=== PATIENT | male | born 1965 | race Caucasian/White ===

== ENCOUNTER 2017-02-18 20:49 | Inpatient (IN) | payer OTHER ==
[~2017-02-18] VITALS: Ht 177.8 cm; Wt 85.0 kg
[~2017-02-18 20:49] MED LIST: ASPI81TA28 PO; BUPR8MIS SL; CIPR-255 PO; LISI-461 PO; PRLSR20 PO
[2017-02-18] MEDS ORDERED: MULT-513 PO (21:32)
[2017-02-18] MEDS ORDERED: SODIUM CHLORIDE 0.9% 1000ML 1,000 ML IV STA (22:17)
[2017-02-18 22:58] LABS: URINE APPEARANCE CLOUDY (CLEAR); URINE COLOR ORANGE; URINE EPITHELIAL CELL AUTO >30 /lpf (0-5); URINE NITRITE POS (NEG); URINE PH 5.5 (4.5-7.5); URINE SPECIFIC GRAVITY 1.035 (1.000-1.030); UROBILINOGEN POS (NEG); ZZUR CULT IF INDIC CLEAN CATCH NO
[2017-02-18 23:00] LABS: MANUAL MICROSCOPIC REQUIRED? NO; REVIEW REQ? YES; URINE BILIRUBIN 1+ (NEG)
[2017-02-18 23:12] LABS: URINE MUCUS PRESENT (NONE PRSENT); URINE PATH CASTS 1-5 GRANULAR CASTS /lpf (0)
[2017-02-18 23:14] LABS: ALT/SGPT 83 U/L (12-78); AST/SGOT 131 U/L (15-37); BLOOD UREA NITROGEN 11 mg/dl (7-18); BUN/CREATININE RATIO 12.8 (10-20); CALCIUM 8.9 mg/dl (8.5-10.1); CARBON DIOXIDE 27 mmol/L (21-32); CHLORIDE 93 mmol/L (98-107); CREATININE 0.83 mg/dl (0.60-1.40); GLUCOSE 144 mg/dl (70-99); MAGNESIUM 1.9 mg/dl (1.8-2.4); POTASSIUM 3.3 mmol/L (3.5-5.1); SODIUM 131 mmol/L (136-145)
[2017-02-18 23:29] LABS: ALKALINE PHOSPHATASE 124 U/L (45-117); THYROID STIMULATING HORMONE 0.317 uIu/ml (0.300-4.500)
[2017-02-18 23:47] LABS: LYME DISEASE AB IGG NEG (NEG); LYME DISEASE AB IGM NEG (NEG)
[2017-02-18 23:52] LABS: HEMATOCRIT 40.7 % (42-52); MEAN CELL VOLUME 80.8 fL (80-100); MEAN CORPUSCULAR HEMOGLOBIN 29.6 pg (25-34); MEAN CORPUSCULAR HGB CONC 36.6 g/dl (32-36); MEAN PLATELET VOLUME 10.2 fL (7.4-10.4); PLATELET COUNT 91 K/uL (130-400); RED BLOOD COUNT 5.04 M/uL (4.7-6.1); WHITE BLOOD COUNT 5.04 K/uL (4.8-10.8)
[2017-02-18 23:53] LABS: BASO % 0.4 %; BASO ABS # 0.02 K/uL (0-0.2); COMPLETE YES; IG% 0.4 %; LARGE PLATELETS 1+; LYMPH % 11.9 %; NEUT % 81.3 %; PLT ESTIMATE DECREASED
[2017-02-19] MEDS ORDERED: SODIUM CHLORIDE 0.9% 1000ML 1,000 ML IV STA (00:13)
[2017-02-19] MEDS ORDERED: ONDANSETRON INJ 2 MG/ML 2 ML VIAL IV STA (00:13)
[2017-02-19] MEDS ORDERED: ONDANSETRON INJ 2 MG/ML 2 ML VIAL ONE (00:18)
--- NOTE | 2017-02-19 00:20 | EMERGENCY ROOM VISIT NOTE ---
ED Visit Note First contact with patient: 22:05 51-year-old male with nausea and some generalized abdominal pain was fully evaluated by Kerri Louis PA-C. Please see her note. I also independently evaluated the patient. Patient appears to be in early rhabdomyolysis. He was given large volumes of fluids. The patient was also given oral fluids
[2017-02-19] MEDS ORDERED: CEFTRIAXONE SOD INJ 1 GM ADDVIAL IV STA (01:55)
[2017-02-19] MEDS ORDERED: POTASSIUM CHLORIDE 10 MEQ TABCR PO STA (01:57)
[2017-02-19] MEDS ORDERED: OPTIRAY 320 IV PRN (02:30)
[2017-02-19] MEDS ORDERED: KETOROLAC TROMETHAMINE 30 MG/ML VIAL IV PRN (02:30)
[2017-02-19] MEDS ORDERED: ACETAMINOPHEN 325 MG TAB PO PRN (02:30)
[2017-02-19] MEDS ORDERED: ONDANSETRON INJ 2 MG/ML 2 ML VIAL IV PRN (02:45)
[2017-02-19] MEDS ORDERED: LORAZEPAM 2 MG/ML 1 ML VIAL IV PRN (02:45)
[2017-02-19] MEDS ORDERED: LORAZEPAM INJ 0.5 MG in SYRINGE 0.75 ML IV PRN (03:15)
[2017-02-19 03:25] LABS: BENZODIAZEPINE, URINE NEG (NEG); COCAINE,URINE NEG (NEG); PHENCYCLIDINE, URINE NEG (NEG)
--- NOTE | 2017-02-19 03:42 | HISTORY & PHYSICAL EXAMINATION ---
DATE OF ADMISSION: 02/19/2017 HX obtained from px and records. CHIEF COMPLAINT: Abdominal pain, flank pain, chills. HISTORY OF PRESENT ILLNESS: Mhxedical history significant for hypertension, past tobacco and alcohol abuse, ADD as per records, GERD, chronic pain on Suboxone therapy. Recent confinement last April 2014 for atypical chest pain and alcoholism. A week history of dysuria sx, bilateral flank pain, achy central abdominal pain , nausea, no emesis, no diarrheal. Px also noted chills, posterior headache symptoms. No cough symptoms. Shaking at home. MEDICAL HISTORY: As above. SURGERIES: Shoulder surgery, tonsillectomy, and adenectomy. HOME MEDICATIONS: Include aspirin, Suboxone, Zestril, multivitamins, and Prilosec. ALLERGIES: TO ADHESIVE, BEESTING, DIPHENHYDRAMINE, HYDROCODONE, AND LATEX. FAMILY HISTORY: heart dse. PERSONAL AND SOCIAL HISTORY: Past tobacco and alcohol abuse, disabled. REVIEW OF SYSTEMS: As per HPI, all other ROS negative. PHYSICAL EXAMINATION: VITAL SIGNS: Blood pressure was noted to be 121/82, pulse rate 134 later 84, RR 18, temp 97, sats 96 on room air. GENERAL: Noted to be slightly uncomfortable, no respiratory distress. SKIN: Normal color. HEENT: [place] palpebral conjunctivae. Dry mucosa. NECK: No JVD. Supple. CHEST: Clear to auscultation. HEART: RRR ABDOMEN: Minimal upper abdominal tenderness. No flank tenderness. EXTREMITIES: No edema. no tenderness NEUROLOGIC: No gross focality. LABS: Hemoglobin was noted to be 14, hematocrit 40, white cell count 5, and platelets 91. Sodium 131 potassium 3.4, BUN 11, creatinine 0.8, AST 131, ALT 83, alkaline phosphatase 124. CPK 2926. UA nitrite positive, occult blood positive. Chest x-ray as per my interpretation, atelectasis and borderline heart enlargement. CT head, no acute pathology initial read. ASSESSMENT: 1. Rhabdomyolysis, possibly from illness secondary to UTI no sepsis. 2. abd/flank pain ro kidney stone 3. Hypertension, stable. 4. Past tobacco and alcohol abuse. 5. Thrombocytopenia secondary to illness and meds. 6. chronic pain on Suboxone 7. hypokalemia 2 to illness PLAN: GMF ff urine CS, IV Ceftriaxone for now CT abdomen and pelvis. Further management pending CT abdomen and pelvis results IVF. Follow CPK. Hold aspirin for now RE thrombocytopenia replace K DVT prophylaxis SCDs RE thrombocytopenia Full code. MTDD
[2017-02-19] MEDS: NSS + 20MEQ KCL 1000ML 1,000 ML IV SCH ×3 (03:47→12:48)
[2017-02-19 04:01] VITALS: BP 142/80; PULSE 105; TEMP 36.8; Ht 177.8 cm; Wt 85.0 kg
[2017-02-19 04:34] LABS: INR 1.3 (0.9-1.1); PROTHROMBIN TIME (PATIENT) 13.9 SECONDS (9.0-12.0)
[2017-02-19 04:45] LABS: HEMATOCRIT 36.2 % (42-52); MEAN CELL VOLUME 81.5 fL (80-100); MEAN CORPUSCULAR HEMOGLOBIN 29.3 pg (25-34); MEAN CORPUSCULAR HGB CONC 35.9 g/dl (32-36); RED BLOOD COUNT 4.44 M/uL (4.7-6.1)
[2017-02-19 04:49] LABS: BUN/CREATININE RATIO 10.5 (10-20); CREATININE 0.78 mg/dl (0.60-1.40); POTASSIUM 3.6 mmol/L (3.5-5.1)
[2017-02-19 05:04] LABS: ALB/GLOB RATIO 0.9 (0.9-2)
[2017-02-19 05:18] LABS: MEAN PLATELET VOLUME 9.7 fL (7.4-10.4); PLATELET COUNT 77 K/uL (130-400)
[2017-02-19 05:19] LABS: BASO % 0.4 %; BASO ABS # 0.01 K/uL (0-0.2); COMPLETE YES; LARGE PLATELETS 1+; LYMPH % 18.1 %; LYMPH ABS # 0.49 K/uL (1.2-3.4); MONO % 8.1 %; NEUT % 73.4 %
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
--- NOTE | 2017-02-19 06:44 | DIAGNOSTIC IMAGING REPORT ---
CT OF THE HEAD WITHOUT CONTRAST CLINICAL HISTORY: New onset headaches. COMPARISON STUDY: Head CT September 25, 2011. CT DOSE: 614.27 mGy.cm TECHNIQUE: Helical axial images of the head were obtained without IV contrast. Automated exposure control was utilized for the study. FINDINGS: No acute intracranial hemorrhage, midline shift or mass effect is present. Ventricular system is normal. Basilar cisterns are patent. There are no extra-axial collections. Benedict-white differentiation is maintained. There are no findings to suggest acute dural sinus thrombosis or acute territorial infarct. There are no significant calvarial abnormalities. Mastoid air cells are clear. There is mucosal thickening of the ethmoid sinuses. IMPRESSION: 1. No acute intracranial findings. 2. Mucosal thickening of the ethmoid sinuses. Electronically signed by: Sridhar Machado M.D. 02/19/2017 6:43 AM Dictated Date/Time: 02/19/2017 6:41 AM
--- NOTE | 2017-02-19 07:30 | DIAGNOSTIC IMAGING REPORT ---
SINGLE VIEW CHEST CLINICAL HISTORY: Atypical chest pain. FINDINGS: 2 AP, portable, upright chest radiographs are compared to study dated 04/05/2015 and correlated with chest CT dated 04/17/2014. The examination is degraded by portable technique and patient rotation. The heart is enlarged. The pulmonary vasculature is noncongested.. Emphysema and chronic interstitial thickening are similar to previous. There is bibasilar scarring versus atelectasis. No airspace consolidation or large pleural effusion is identified. No pneumothorax is seen. The bony thorax is grossly intact. IMPRESSION: No active disease in the chest. Electronically signed by: Demarco Mcintosh M.D. 02/19/2017 7:28 AM Dictated Date/Time: 02/19/2017 7:27 AM
[2017-02-19] MEDS: TRAMADOL HCL 50 MG TAB PO PRN (07:37)
[2017-02-19] MEDS: CEROVITE ADV FORMULA TAB PO SCH (07:37)
[2017-02-19] MEDS: BUPRENORPHINE/NALOXONE 8/2 MG TAB SL SCH ×2 (07:37→20:22)
[2017-02-19] MEDS: LISINOPRIL 10 MG TAB PO SCH (07:38)
[2017-02-19] MEDS: PANTOprazole SOD 40 MG TAB PO SCH (07:38)
--- NOTE | 2017-02-19 07:46 | DIAGNOSTIC IMAGING REPORT ---
CT SCAN OF THE ABDOMEN AND PELVIS WITH IV CONTRAST CLINICAL HISTORY: Generalized abdominal pain. COMPARISON STUDY: Abdominal CT dated 06/26/2016. TECHNIQUE: Following the IV administration of 119 cc of Optiray 320, CT scan of the abdomen and pelvis is performed from the lung bases to the proximal femora. Images are reviewed in the axial, sagittal, and coronal planes. IV contrast was administered without complication. Automated dose control exposure was utilized. CT DOSE: 437.73 mGy.cm FINDINGS: Lung bases: The heart is normal in size and without pericardial effusion. There is bibasilar scarring versus atelectasis. No airspace consolidation is seen typical for pneumonia and there is no pleural effusion. Liver: The contrast-enhanced liver is normal in size, contour, and attenuation. There is no intrahepatic biliary ductal dilatation. The hepatic veins and portal veins are patent. Gallbladder: Unremarkable. Spleen: Normal in size and attenuation. Pancreas: Unremarkable. Adrenal glands: Unremarkable. Kidneys: The contrast enhanced kidneys are normal in size and without hydronephrosis. The kidneys enhance symmetrically. Abdominal vasculature: The abdominal aorta is normal in course and caliber noting moderate and age advanced atherosclerotic calcification. Bowel: The small bowel and colon are normal in course and caliber. The appendix is well-visualized and normal. Peritoneum: There is no intraperitoneal free air or abdominal ascites. Lymphadenopathy: None. Pelvic viscera: The bladder, prostate, and seminal vesicles are within normal limits. Skeletal structures: No lytic or blastic lesions are seen. IMPRESSION: There are no acute infectious or inflammatory findings in the abdomen or pelvis. Electronically signed by: Demarco Mcintosh M.D. 02/19/2017 7:45 AM Dictated Date/Time: 02/19/2017 7:42 AM
[2017-02-19 07:54] VITALS: BP 131/72; PULSE 111; TEMP 37.4; O2SAT 94
[2017-02-19 15:39] VITALS: BP 113/75; PULSE 89; TEMP 36.6; O2SAT 96
[2017-02-19] MEDS: LACTATED RINGER'S 1000ML 1,000 ML IV SCH ×2 (16:16→21:05)
--- NOTE | 2017-02-19 22:28 | Progress Note ---
Medicine Progress Note Date & Time of Visit: February 19, 2017 at ~ 15:30 . Subjective Admitted last night with 1 week history of malaise, myalgias, arthralgias. Had some mild dysuria, but only after several days of other symptoms. No cough. No nausea, vomiting, diarrhea. Tick bite about 2 weeks ago with bulls eye rash. . Objective Last 8 Hrs Date Time Temp Pulse Resp B/P Pulse Ox O2 Delivery O2 Flow Rate FiO2 02/19/17 16:00 Room Air 02/19/17 15:39 36.6 89 18 113/75 96 Room Air Physical Exam: General- no acute distress Eyes- anicteric Lungs- clear Heart- RRR Abdomen- + BS, soft, nontender Extremities- no pretibial edema or calf tenderness Neuro- alert Skin- small eschar superior to right iliac crest, no rash suggestive of erythema migrans . Laboratory Results: Last 24 Hours Test 02/18/17 22:42 02/18/17 22:49 02/19/17 04:15 White Blood Count 5.04 K/uL 2.70 K/uL Red Blood Count 5.04 M/uL 4.44 M/uL Hemoglobin 14.9 g/dL 13.0 g/dL Hematocrit 40.7 % 36.2 % Mean Corpuscular Volume 80.8 fL 81.5 fL Mean Corpuscular Hemoglobin 29.6 pg 29.3 pg Mean Corpuscular Hemoglobin Concent 36.6 g/dl 35.9 g/dl Platelet Count 91 K/uL 77 K/uL Mean Platelet Volume 10.2 fL 9.7 fL Neutrophils (%) (Auto) 81.3 % 73.4 % Lymphocytes (%) (Auto) 11.9 % 18.1 % Monocytes (%) (Auto) 6.0 % 8.1 % Eosinophils (%) (Auto) 0.0 % 0.0 % Basophils (%) (Auto) 0.4 % 0.4 % Neutrophils # (Auto) 4.10 K/uL 1.98 K/uL Lymphocytes # (Auto) 0.60 K/uL 0.49 K/uL Monocytes # (Auto) 0.30 K/uL 0.22 K/uL Eosinophils # (Auto) 0.00 K/uL 0.00 K/uL Basophils # (Auto) 0.02 K/uL 0.01 K/uL RDW Standard Deviation 37.1 fL 38.4 fL RDW Coefficient of Variation 12.6 % 12.7 % Immature Granulocyte % (Auto) 0.4 % 0.0 % Immature Granulocyte # (Auto) 0.02 K/uL 0.00 K/uL Platelet Estimate DECREASED Large Platelets 1+ 1+ Erythrocyte Sedimentation Rate 24 mm/hr Urine Color ORANGE Urine Appearance CLOUDY Urine pH 5.5 Urine Specific [place] 1.035 Urine Protein 2+ Urine Glucose (UA) TRACE Urine Ketones 1+ Urine Occult Blood 2+ Urine Nitrite POS Urine Bilirubin 1+ Urine Urobilinogen POS Urine Leukocyte Esterase TRACE Urine WBC (Auto) 1-5 /hpf Urine RBC (Auto) 0-4 /hpf Urine Hyaline Casts (Auto) 1-5 /lpf Urine Epithelial Cells (Auto) >30 /lpf Urine Bacteria (Auto) NEG Urine Pathogenic Casts 1-5 GRANULAR CASTS /lpf Urine Mucus PRESENT Sodium Level 131 mmol/L 134 mmol/L Potassium Level 3.3 mmol/L 3.6 mmol/L Chloride Level 93 mmol/L 98 mmol/L Carbon Dioxide Level 27 mmol/L 27 mmol/L Anion Gap 11.0 mmol/L 9.0 mmol/L Blood Urea Nitrogen 11 mg/dl 8 mg/dl Creatinine 0.83 mg/dl 0.78 mg/dl Est Creatinine Clear Calc Drug Dose 113.0 ml/min 120.2 ml/min Estimated GFR () 119.7 122.8 Estimated GFR (Non- 103.3 106.0 BUN/Creatinine Ratio 12.8 10.5 Random Glucose 144 mg/dl 143 mg/dl Calcium Level 8.9 mg/dl 8.0 mg/dl Magnesium Level 1.9 mg/dl Total Bilirubin 2.5 mg/dl 1.7 mg/dl Aspartate Amino Transf (AST/SGOT) 131 U/L 111 U/L Alanine Aminotransferase (ALT/SGPT) 83 U/L 72 U/L Alkaline Phosphatase 124 U/L 113 U/L Total Creatine Kinase 2926 U/L 2514 U/L Troponin I < 0.015 ng/ml C-Reactive Protein 14.90 mg/dl Total Protein 8.0 gm/dl 6.8 gm/dl Albumin 4.0 gm/dl 3.2 gm/dl Globulin 4.0 gm/dl 3.6 gm/dl Albumin/Globulin Ratio 1.0 0.9 Thyroid Stimulating Hormone (TSH) 0.317 uIu/ml Urine Opiates Screen NEG Urine Methadone, Qualitative NEG Urine Barbiturates NEG Urine Phencyclidine (PCP) Level NEG Ur Amphetamine/Methamphetamine NEG MDMA (Ecstasy) Screen NEG Urine Benzodiazepines Screen NEG Urine Cocaine Metabolite NEG Urine Marijuana (THC) NEG Lyme Disease IgG Antibody NEG Lyme Disease IgM Antibody NEG Influenza Type A Antigen Neg for Influ A Influenza Type B Antigen Neg for Influ B Prothrombin Time 13.9 SECONDS Prothromb Time International Ratio 1.3 Ethyl Alcohol mg/dL < 3.0 mg/dl Date/Time Source Procedure Growth Status 02/18/17 22:42 Urine , Clean Catch Urine Culture Pending Received Assessment & Plan MYALGIAS / ARTHRALGIAS Tick bite about 1 week prior to onset of symptom with apparent erythema migrans per patient (not apparent at this time). Lyme screen negative (but it is early after onset of illness). Consider Lyme disease or other tick-borne illnesses. Consider viral syndrome. Consult ID. RHABDOMYOLYSIS Moderate rhabdomyolysis. Has myalgias from suspected viral illness. IV fluids. Follow. HYPOKALEMIA Replace. Follow. HYPERTENSION Continue lisinopril. CHRONIC PAIN SYNDROME Continue usual dose of buprenorphine / naloxone. VTE PROPHYLAXIS SCD's. Ambulate. DISPOSITION Expected discharge to home. Internal Medicine follow-up with Dr. Collier. . Current Inpatient Medications: Current Inpatient Medications Medications (Trade) Dose Ordered Sig/Elena Route Start Time Stop Time Status Last Admin Dose Admin Ioversol (Optiray 320) 100 ml UD PRN IV 02/19/17 02:30 02/23/17 02:29 Acetaminophen (Tylenol Tab) 325 mg Q6H PRN PO 02/19/17 02:30 03/21/17 02:29 02/19/17 07:37 325 MG Lisinopril (Zestril Tab) 10 mg DAILY PO 02/19/17 08:00 03/21/17 08:59 02/19/17 07:38 10 MG Multivitamins/ Minerals (Multivitamin W/ Minerals Tab) 1 tab DAILY PO 02/19/17 08:00 03/21/17 08:59 02/19/17 07:37 1 TAB Buprenorphine/ Naloxone (Suboxone Tab) 1 ea BID SL 02/19/17 08:00 03/21/17 08:59 02/19/17 20:22 1 EA Pantoprazole Sodium (Protonix Tab) 40 mg QAM PO 02/19/17 08:00 03/21/17 07:59 02/19/17 07:38 40 MG Tramadol HCl (Ultram Tab) 25 mg Q6H PRN PO 02/19/17 02:30 03/21/17 02:29 02/19/17 07:37 25 MG Ketorolac Tromethamine 30 mg 30 mg Q6H PRN IV 02/19/17 02:30 02/24/17 02:29 02/19/17 10:17 30 MG Ceftriaxone Sodium/Dextrose (Rocephin Inj/ Dextrose Add-[place] 50ML) 50 ml @ 100 mls/hr Q24H IV 02/20/17 03:00 02/28/17 03:29 Ondansetron HCl (Zofran Inj) 4 mg Q6H PRN IV 02/19/17 02:45 03/21/17 02:44 Lorazepam 0.5 mg 0.5 mg Q4H PRN IV 02/19/17 02:45 03/21/17 02:44 Lorazepam 0.5 mg/ Syringe 1 ml @ 1 mls/min Q4H PRN IV 02/19/17 03:15 03/21/17 03:14 02/19/17 06:13 1 MLS/MIN Lactated Ringer's (Lr 1000ml) 1,000 ml @ 200 mls/hr Q5H IV 02/19/17 15:45 03/21/17 15:44 02/19/17 21:05 200 MLS/HR
[2017-02-19 23:59] VITALS: BP 143/82; PULSE 91; TEMP 36.8; O2SAT 98
[2017-02-20] VITALS: O2SAT 96
[2017-02-20] MEDS ORDERED: LORAZEPAM 0.5 MG TAB PO STA (00:18)
[2017-02-20] MEDS: LACTATED RINGER'S 1000ML 1,000 ML IV SCH ×5 (01:56→22:07)
[2017-02-20] MEDS: CEFTRIAXONE SOD INJ 1 GM in DEXTROSE 5% ADD-VANTAGE 50ML 50 ML IV SCH (03:29)
[2017-02-20 06:45] LABS: HEMATOCRIT 32.9 % (42-52); MEAN CELL VOLUME 82.3 fL (80-100); MEAN CORPUSCULAR HEMOGLOBIN 28.8 pg (25-34); WHITE BLOOD COUNT 3.51 K/uL (4.8-10.8)
[2017-02-20 06:57] LABS: BUN/CREATININE RATIO 8.6 (10-20); CREATININE 0.74 mg/dl (0.60-1.40); POTASSIUM 3.5 mmol/L (3.5-5.1)
[2017-02-20 07:07] LABS: BASO % 2.3 %; BASO ABS # 0.08 K/uL (0-0.2); COMPLETE YES; EOS % 0.3 %; IG% 1.1 %; LYMPH % 44.4 %; LYMPH ABS # 1.56 K/uL (1.2-3.4); MEAN PLATELET VOLUME 10.4 fL (7.4-10.4); MONO % 11.7 %; NEUT % 40.2 %; PLATELET COUNT 71 K/uL (130-400)
[2017-02-20 07:19] VITALS: BP 122/75; PULSE 98; TEMP 37.7; O2SAT 94
[2017-02-20] MEDS: CEROVITE ADV FORMULA TAB PO SCH (08:20)
[2017-02-20] MEDS: PANTOprazole SOD 40 MG TAB PO SCH (08:21)
[2017-02-20] MEDS: LISINOPRIL 10 MG TAB PO SCH (08:21)
[2017-02-20] MEDS: TRAMADOL HCL 50 MG TAB PO PRN (08:22)
[2017-02-20] MEDS: BUPRENORPHINE/NALOXONE 8/2 MG TAB SL SCH ×2 (08:23→19:37)
--- NOTE | 2017-02-20 08:32 | Progress Note ---
Progress Note Date of Service February 20, 2017. Progress Note Id consult dictated #[id number] A/P: 1. tick borne illness -Add doxy, ? 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
--- NOTE | 2017-02-20 09:20 | INFECT. DISEASE CONSULTATION ---
DATE OF CONSULTATION: 02/20/2017 DATE OF CONSULTATION: 02/20/2017. REQUESTING PHYSICIAN: Dr. Preciado. HISTORY OF PRESENT ILLNESS: This is a 51-year-old gentleman who was admitted secondary to flank pain, chills and abdominal pain. He reports having a tick bite on his right flank about 2 weeks ago. He states that he did remove this. He is unclear how long it had been attached. He does spend a significant amount of time outdoors hunting. He states that he had significant bull's eye rash associated with this. He did not seek treatment at that time. Within a few days prior to admission, he did note myalgias, arthralgias and headache. He then was admitted to the hospital. A CAT scan of the abdomen and pelvis was performed which did not show any abnormalities. He initially had a white blood cell count of 5.0. This is decreased to 3.5. He has also had elevations of his LFTs on the 4th. His AST was elevated at 131, ALT was 83. He has not had any micro performed. He did have a Lyme titer which was negative. He was started empirically on Rocephin. He is tolerating this well. On my examination this morning, he is awake and eating breakfast. He states he does have a headache. He did have a temperature of 37.7 this morning. He was unaware of that but had previously been afebrile. He denies any fevers or chills at home. He believes that his temperature elevation may be responsible for his headache. He continues to have diffuse arthralgias and fatigue. He denies any chest pain, shortness of breath, cough, nausea, vomiting, diarrhea or abdominal pain currently. He has no urinary symptoms. All remaining review of systems are reviewed and are negative. PAST MEDICAL HISTORY: Significant for hypertension, history of alcohol abuse, GERD and chronic pain requiring Suboxone therapy. PAST SURGICAL HISTORY: Includes his shoulder surgery, tonsillectomy and adenoid removal. ALLERGIES: INCLUDE BENADRYL AND LATEX. FAMILY HISTORY: Noncontributory. SOCIAL HISTORY: Significant for a history of tobacco use, history of alcohol abuse. He denies any other drug use. MEDICATIONS: Include Rocephin, Vistaril, multivitamins, Suboxone, Protonix, Ativan, Zofran, Tylenol, Ultram and Toradol. PHYSICAL EXAMINATION: VITAL SIGNS: T-max for the hospital stay is current temperature of 37.7, pulse 98, respiratory rate is 22, blood pressure is 122/75, oxygen saturation is 94-96% on room air. GENERAL: He is awake, alert and oriented x3. He is in no acute distress. HEAD, EYES, EARS, NOSE, AND THROAT: Mucous membranes are moist. There is no nuchal rigidity. HEART: Regular. LUNGS: Clear bilaterally. ABDOMEN: Soft, nontender, nondistended. EXTREMITIES: There is no lower extremity edema bilaterally. There is no rash. Flank was examined at the area of tick bite and I did not see a rash at this time. LABORATORY STUDIES: CBC today reveals a white blood cell count of 3.5, hemoglobin 11.5, platelets 71. Sed rate on the 4th was 24. Chemistry panel today reveals a sodium of 133, potassium 3.5, chloride 99, bicarbonate 26, BUN 6, creatinine 0.7, glucose is 96. LFTs on admission, again AST was 131, ALT was 83. LFTs done yesterday. AST is improved to 111, ALT is improved to 72. CK has been elevated, it was 2926 on admission, it is down to 1266 today. Her CRP was elevated at 14.9 on admission. UDS was negative. Alcohol level was negative. A urinalysis had only 1-5 WBCs. Again, Lyme titer was negative. Flu swab was negative. Urine culture from the 4th is pending. A head CT done in the ER, had no acute findings. Chest x-ray done in the Emergency Room had no active disease in the chest. CT of the abdomen and pelvis done yesterday shows no acute infectious findings in the abdomen. ASSESSMENT AND PLAN: Likely tick-borne disease, Lyme disease versus ehrlichiosis with his evolving pancytopenia as well as his transaminitis I would be suspicious for Marline and/or Anaplasma. Doxycycline will be added. Marline and Anaplasma antibodies will be ordered as well. If he continues to have fevers, blood cultures should be obtained. Thank you for this consultation.
[2017-02-20 14:58] VITALS: BP 125/84; PULSE 90; TEMP 37.1; O2SAT 94
--- NOTE | 2017-02-20 19:05 | Progress Note ---
Medicine Progress Note Date & Time of Visit: February 20, 2017 at 11:40 . Subjective Intermittent low grade fever and sweats. Headache and diffuse myalgias. No cough or SOB. No chest pain. No nausea or vomiting. . Objective Last 8 Hrs Date Time Temp Pulse Resp B/P Pulse Ox O2 Delivery O2 Flow Rate FiO2 02/20/17 15:14 Room Air 02/20/17 14:58 37.1 90 18 125/84 94 Room Air Physical Exam: General- no acute distress Eyes- anicteric Neck- supple Lungs- clear Heart- RRR Abdomen- + BS, soft, nontender Extremities- no pretibial edema or calf tenderness Neuro- alert Skin- diaphoretic . Laboratory Results: Last 24 Hours Test 02/20/17 05:52 02/20/17 09:11 White Blood Count 3.51 K/uL Red Blood Count 4.00 M/uL Hemoglobin 11.5 g/dL Hematocrit 32.9 % Mean Corpuscular Volume 82.3 fL Mean Corpuscular Hemoglobin 28.8 pg Mean Corpuscular Hemoglobin Concent 35.0 g/dl Platelet Count 71 K/uL Mean Platelet Volume 10.4 fL Neutrophils (%) (Auto) 40.2 % Lymphocytes (%) (Auto) 44.4 % Monocytes (%) (Auto) 11.7 % Eosinophils (%) (Auto) 0.3 % Basophils (%) (Auto) 2.3 % Neutrophils # (Auto) 1.41 K/uL Lymphocytes # (Auto) 1.56 K/uL Monocytes # (Auto) 0.41 K/uL Eosinophils # (Auto) 0.01 K/uL Basophils # (Auto) 0.08 K/uL RDW Standard Deviation 39.6 fL RDW Coefficient of Variation 13.0 % Immature Granulocyte % (Auto) 1.1 % Immature Granulocyte # (Auto) 0.04 K/uL Nucleated RBC Absolute Count (auto) 0.04 K/uL Nucleated Red Blood Cells % 1.2 % Sodium Level 133 mmol/L Potassium Level 3.5 mmol/L Chloride Level 99 mmol/L Carbon Dioxide Level 26 mmol/L Anion Gap 8.0 mmol/L Blood Urea Nitrogen 6 mg/dl Creatinine 0.74 mg/dl Est Creatinine Clear Calc Drug Dose 124.7 ml/min Estimated GFR () 125.5 Estimated GFR (Non- 108.3 BUN/Creatinine Ratio 8.6 Random Glucose 96 mg/dl Calcium Level 8.0 mg/dl Total Creatine Kinase 1266 U/L Assessment & Plan MYALGIAS / ARTHRALGIAS Tick bite about 1 week prior to onset of symptom with apparent erythema migrans per patient (not apparent at this time). Lyme screen negative (but it is early after onset of illness). Consider Lyme disease or other tick-borne illnesses. Consider viral syndrome. ID consulted. Continue IV ceftriaxone. Doxycycline added. RHABDOMYOLYSIS Moderate rhabdomyolysis. Has myalgias from suspected viral illness. Receiving IV fluids. CPK 2926 --> --> 1266. Follow. HYPOKALEMIA K 3.3 at time of admission. Replace. Follow. PANCYTOPENIA Probably due to infection. Follow. HYPERTENSION Continue lisinopril. CHRONIC PAIN SYNDROME Continue usual dose of buprenorphine / naloxone. VTE PROPHYLAXIS No anticoagulants due to thrombocytopenia. SCD's. Ambulate. DISPOSITION Expected discharge to home. Internal Medicine follow-up with Dr. Collier. Noelle visiting and given update. . Current Inpatient Medications: Current Inpatient Medications Medications (Trade) Dose Ordered Sig/Elena Route Start Time Stop Time Status Last Admin Dose Admin Ioversol (Optiray 320) 100 ml UD PRN IV 02/19/17 02:30 02/23/17 02:29 Acetaminophen (Tylenol Tab) 325 mg Q6H PRN PO 02/19/17 02:30 03/21/17 02:29 02/19/17 07:37 325 MG Lisinopril (Zestril Tab) 10 mg DAILY PO 02/19/17 08:00 03/21/17 08:59 02/20/17 08:21 10 MG Multivitamins/ Minerals (Multivitamin W/ Minerals Tab) 1 tab DAILY PO 02/19/17 08:00 03/21/17 08:59 02/20/17 08:20 1 TAB Buprenorphine/ Naloxone (Suboxone Tab) 1 ea BID SL 02/19/17 08:00 03/21/17 08:59 02/20/17 08:23 1 EA Pantoprazole Sodium (Protonix Tab) 40 mg QAM PO 02/19/17 08:00 03/21/17 07:59 02/20/17 08:21 40 MG Tramadol HCl (Ultram Tab) 25 mg Q6H PRN PO 02/19/17 02:30 03/21/17 02:29 02/20/17 08:22 25 MG Ketorolac Tromethamine 30 mg 30 mg Q6H PRN IV 02/19/17 02:30 02/24/17 02:29 02/19/17 10:17 30 MG Ceftriaxone Sodium/Dextrose (Rocephin Inj/ Dextrose Add-[place] 50ML) 50 ml @ 100 mls/hr Q24H IV 02/20/17 03:00 02/28/17 03:29 02/20/17 03:29 100 MLS/HR Ondansetron HCl (Zofran Inj) 4 mg Q6H PRN IV 02/19/17 02:45 03/21/17 02:44 Lorazepam 0.5 mg 0.5 mg Q4H PRN IV 02/19/17 02:45 03/21/17 02:44 Lorazepam 0.5 mg/ Syringe 1 ml @ 1 mls/min Q4H PRN IV 02/19/17 03:15 03/21/17 03:14 02/19/17 06:13 1 MLS/MIN Lactated Ringer's (Lr 1000ml) 1,000 ml @ 200 mls/hr Q5H IV 02/19/17 15:45 03/21/17 15:44 02/20/17 17:08 200 MLS/HR Doxycycline Hyclate (Vibramycin Cap) 100 mg BID PO 02/20/17 20:00 03/02/17 19:59
[2017-02-20] MEDS: DOXYCYCLINE HYCLATE 100 MG CAP PO SCH (19:37)
[2017-02-20 20:00] VITALS: O2SAT 96
[2017-02-20 22:56] VITALS: BP 122/83; PULSE 89; TEMP 36.9; O2SAT 94
[2017-02-21] VITALS: O2SAT 96
[2017-02-21] MEDS: CEFTRIAXONE SOD INJ 1 GM in DEXTROSE 5% ADD-VANTAGE 50ML 50 ML IV SCH (02:48)
[2017-02-21] MEDS: LACTATED RINGER'S 1000ML 1,000 ML IV SCH ×2 (03:47→08:32)
[2017-02-21 05:37] LABS: HEMATOCRIT 35.2 % (42-52); MEAN CELL VOLUME 82.4 fL (80-100); MEAN CORPUSCULAR HGB CONC 35.2 g/dl (32-36); RED BLOOD COUNT 4.27 M/uL (4.7-6.1); WHITE BLOOD COUNT 5.07 K/uL (4.8-10.8)
[2017-02-21 05:41] LABS: MEAN PLATELET VOLUME 10.3 fL (7.4-10.4); PLATELET COUNT 82 K/uL (130-400)
[2017-02-21 06:10] LABS: BASO ABS # 0.05 K/uL (0-0.2); BASOPHIL % 0.9 % (0-2); COMPLETE YES; EOSINOPHIL % 2.6 %; GIANT PLATELETS 1+; HYPOSEGMENTED POLYS 1+; LYMPH ABS # 1.54 K/uL (1.2-3.4); LYMPHOCYTE % 30.4 %; NEUTROPHILS % 48.8 %; VARIANT LYM ABS # 0.66 K/uL
[2017-02-21 06:19] LABS: BUN/CREATININE RATIO 8.9 (10-20); CALCIUM 8.6 mg/dl (8.5-10.1); CREATININE 0.6 mg/dl (0.60-1.40); POTASSIUM 3.4 mmol/L (3.5-5.1)
[2017-02-21 07:17] VITALS: BP 142/96; PULSE 80; TEMP 36.5; O2SAT 97
[2017-02-21] MEDS ORDERED: NURSING VERBAL MED ORDER ONE (08:45)
--- NOTE | 2017-02-21 09:00 | Progress Note ---
Medicine Progress Note Date & Time of Visit: February 21, 2017 at 08:10 . Subjective No fever last night. Still experiencing intermittent sweats. Headache improved. Myalgias and arthralgias improved. No chest pain, cough, SOB. No nausea, vomiting, diarrhea. . Objective Last 8 Hrs Date Time Temp Pulse Resp B/P Pulse Ox O2 Delivery O2 Flow Rate FiO2 02/21/17 07:17 36.5 80 18 142/96 97 Room Air Physical Exam: General- no distress Eyes- anicteric Neck- supple Lungs- clear Heart- RRR Abdomen- + BS, soft, nontender Extremities- no pretibial edema or calf tenderness Neuro- alert Skin- mildly diaphoretic; small eschar above right iliac crest with mild surrounding hyperpigmentation but not overtly erythematous . Laboratory Results: Last 24 Hours Test 02/20/17 09:11 02/21/17 05:20 White Blood Count 5.07 K/uL Red Blood Count 4.27 M/uL Hemoglobin 12.4 g/dL Hematocrit 35.2 % Mean Corpuscular Volume 82.4 fL Mean Corpuscular Hemoglobin 29.0 pg Mean Corpuscular Hemoglobin Concent 35.2 g/dl Platelet Count 82 K/uL Mean Platelet Volume 10.3 fL RDW Standard Deviation 39.3 fL RDW Coefficient of Variation 13.1 % Neutrophils % (Manual) 48.8 % Lymphocytes % (Manual) 30.4 % Variant Lymphocytes % (manual) 13.0 % Monocytes % (Manual) 4.3 % Eosinophils % (Manual) 2.6 % Basophils % (Manual) 0.9 % Neutrophils # (Manual) 2.47 K/uL Total Absolute Neutrophils 2.47 K/uL Lymphocytes # (Manual) 1.54 K/uL Absolute Variant Lymphocytes 0.66 K/uL Total Absolute Lymphocytes 2.20 K/uL Monocytes # (Manual) 0.22 K/uL Eosinophils # (Manual) 0.13 K/uL Basophils # (Manual) 0.05 K/uL Hyposegmented Neutrophils 1+ Giant Platelets 1+ Sodium Level 141 mmol/L Potassium Level 3.4 mmol/L Chloride Level 104 mmol/L Carbon Dioxide Level 31 mmol/L Anion Gap 6.0 mmol/L Blood Urea Nitrogen 5 mg/dl Creatinine 0.60 mg/dl Est Creatinine Clear Calc Drug Dose 153.8 ml/min Estimated GFR () 136.8 Estimated GFR (Non- 118.1 BUN/Creatinine Ratio 8.9 Random Glucose 108 mg/dl Calcium Level 8.6 mg/dl Total Creatine Kinase 636 U/L Assessment & Plan FEVER / MYALGIAS / ARTHRALGIAS Tick bite about 1 week prior to onset of symptom. Patient couldn't see site well, but thought that he had an erythematous rash with central clearing. Mary[place]aisale reports that rash was erythematous, a few cm in diameter, without central clearing. Suspected Lyme disease or other tick-borne illnesses such as ehrlichiosis and anaplasmosis. Lyme screen negative (but it is early after onset of illness). ID consulted. Ehrlichia and anaplasma studies pending. Receiving IV ceftriaxone + doxy. RHABDOMYOLYSIS Moderate rhabdomyolysis. Has myalgias from suspected viral illness. Received IV fluids. CPK 2926 --> --> 636. Follow. HYPOKALEMIA K 3.3 at time of admission. Replace. Follow. PANCYTOPENIA WBC anisa 2700, now 5070. Hgb anisa 11.5, now 12.4. Plt anisa 71,000, now 82,000. Pancytopenia probably due to infection. Follow. HYPERTENSION Continue lisinopril. CHRONIC PAIN SYNDROME Continue usual dose of buprenorphine / naloxone. VTE PROPHYLAXIS No anticoagulants due to thrombocytopenia. SCD's. Ambulate. DISPOSITION Expected discharge to home. Internal Medicine follow-up with Dr. Collier. . Current Inpatient Medications: Current Inpatient Medications Medications (Trade) Dose Ordered Sig/Elena Route Start Time Stop Time Status Last Admin Dose Admin Ioversol (Optiray 320) 100 ml UD PRN IV 02/19/17 02:30 02/23/17 02:29 Acetaminophen (Tylenol Tab) 325 mg Q6H PRN PO 02/19/17 02:30 03/21/17 02:29 02/19/17 07:37 325 MG Lisinopril (Zestril Tab) 10 mg DAILY PO 02/19/17 08:00 03/21/17 08:59 02/20/17 08:21 10 MG Multivitamins/ Minerals (Multivitamin W/ Minerals Tab) 1 tab DAILY PO 02/19/17 08:00 03/21/17 08:59 02/20/17 08:20 1 TAB Buprenorphine/ Naloxone (Suboxone Tab) 1 ea BID SL 02/19/17 08:00 03/21/17 08:59 02/20/17 19:37 1 EA Pantoprazole Sodium (Protonix Tab) 40 mg QAM PO 02/19/17 08:00 03/21/17 07:59 02/20/17 08:21 40 MG Tramadol HCl (Ultram Tab) 25 mg Q6H PRN PO 02/19/17 02:30 03/21/17 02:29 02/20/17 08:22 25 MG Ketorolac Tromethamine 30 mg 30 mg Q6H PRN IV 02/19/17 02:30 02/24/17 02:29 02/19/17 10:17 30 MG Ceftriaxone Sodium/Dextrose (Rocephin Inj/ Dextrose Add-[place] 50ML) 50 ml @ 100 mls/hr Q24H IV 02/20/17 03:00 02/28/17 03:29 02/21/17 02:48 100 MLS/HR Ondansetron HCl (Zofran Inj) 4 mg Q6H PRN IV 02/19/17 02:45 03/21/17 02:44 Lorazepam 0.5 mg 0.5 mg Q4H PRN IV 02/19/17 02:45 03/21/17 02:44 Lorazepam/Syringe (Ativan Inj/ Syringe) 1 ml @ 1 mls/min Q4H PRN IV 02/19/17 03:15 03/21/17 03:14 02/19/17 06:13 1 MLS/MIN Doxycycline Hyclate (Vibramycin Cap) 100 mg BID PO 02/20/17 20:00 03/02/17 19:59 02/20/17 19:37 100 MG
[2017-02-21] MEDS: BUPRENORPHINE/NALOXONE 8/2 MG TAB SL SCH ×2 (09:04→20:26)
[2017-02-21] MEDS: DOXYCYCLINE HYCLATE 100 MG CAP PO SCH ×2 (09:04→20:26)
[2017-02-21] MEDS: LISINOPRIL 10 MG TAB PO SCH (09:05)
[2017-02-21] MEDS: CEROVITE ADV FORMULA TAB PO SCH (09:05)
[2017-02-21] MEDS: PANTOprazole SOD 40 MG TAB PO SCH (09:05)
[2017-02-21 14:41] VITALS: BP 119/76; PULSE 85; TEMP 36.4; O2SAT 98
[2017-02-21 23:04] VITALS: BP 135/87; PULSE 79; TEMP 36.4; O2SAT 98
[2017-02-22] MEDS: CEFTRIAXONE SOD INJ 1 GM in DEXTROSE 5% ADD-VANTAGE 50ML 50 ML IV SCH (03:10)
[2017-02-22 07:49] VITALS: BP 146/91; PULSE 76; TEMP 36.4; O2SAT 98
[2017-02-22] MEDS: PANTOprazole SOD 40 MG TAB PO SCH (08:48)
[2017-02-22] MEDS: CEROVITE ADV FORMULA TAB PO SCH (08:49)
[2017-02-22] MEDS: LISINOPRIL 10 MG TAB PO SCH (08:49)
[2017-02-22] MEDS: DOXYCYCLINE HYCLATE 100 MG CAP PO SCH (08:49)
[2017-02-22] MEDS: BUPRENORPHINE/NALOXONE 8/2 MG TAB SL SCH (09:06)
--- NOTE | 2017-02-22 10:02 | Progress Note ---
Subjective Date of Service: February 22, 2017. Subjective Pt evaluation today including: conversation w/ patient, physical exam, chart review, lab review pt states he is feeling significantly better today. denies any myalgias/ arthralgias, no f/c. eating. denies sanders. overall, much better. asking to go home. remaining ros reviewed and are negative. afebrile, tolerating abx. all labs improving. Objective Vital Signs Date Time Temp Pulse Resp B/P Pulse Ox O2 Delivery O2 Flow Rate FiO2 02/22/17 07:49 36.4 76 18 146/91 98 Room Air 02/22/17 00:00 Room Air 02/21/17 23:04 36.4 79 18 135/87 98 Room Air 02/21/17 20:00 Room Air 02/21/17 15:22 Room Air 02/21/17 14:41 36.4 85 20 119/76 98 Room Air Physical Exam General Appearance: WD/WN, no apparent distress Eyes: normal inspection, EOMI Neck: supple Respiratory/Chest: lungs clear, normal breath sounds, no respiratory distress Cardiovascular: regular rate, rhythm, no edema Abdomen: non tender, soft Extremities: non-tender, normal inspection, no pedal edema Neurologic/Psychiatric: alert, oriented x 3 Skin: normal color Assessment and Plan (1) Tick-borne disease Assessment & Plan: will stop ctx and continue with po doxy, 14 days total ? early lyme vs anaplasma, labs support anaplasma ok for d/c from ID standpoint
[2017-02-22 13:08] VITALS: BP 146/91; PULSE 76; TEMP 36.4; O2SAT 98
--- NOTE | 2017-02-22 13:50 | Progress Note ---
Medicine Progress Note Date & Time of Visit: February 22, 2017 at 13:50 . Subjective Afebrile. Sweats improved. Headache resolved. Myalgias improved. No cough or SOB. No nausea, vomiting, diarrhea. . Objective Last 8 Hrs Date Time Temp Pulse Resp B/P Pulse Ox O2 Delivery O2 Flow Rate FiO2 02/22/17 13:08 36.4 76 18 98 Room Air 02/22/17 07:49 36.4 76 18 146/91 98 Room Air Physical Exam: General- no distress Lungs- clear Heart- RRR Abdomen- + BS, soft, nontender Extremities- no pretibial edema or calf tenderness Neuro- alert Skin- small eschar above right iliac crest with mild surrounding hyperpigmentation but not overtly erythematous . Assessment & Plan FEVER / MYALGIAS / ARTHRALGIAS Tick bite about 1 week prior to onset of symptom. Patient couldn't see site well, but thought that he had an erythematous rash with central clearing. Fiancee reports that rash was erythematous, a few cm in diameter, without central clearing. Suspected Lyme disease or other tick-borne illnesses such as ehrlichiosis and anaplasmosis. Lyme screen negative (but it is early after onset of illness). ID consulted. Ehrlichia and anaplasma studies pending. Received IV ceftriaxone + doxy. Discharge on doxycycline 100 mg BID to complete 14 day course of therapy. Follow-up with hID. RHABDOMYOLYSIS Moderate rhabdomyolysis. Had myalgias from suspected viral illness. Received IV fluids. CPK 2926 --> --> 636. HYPOKALEMIA K 3.3 at time of admission. Replaced with improvement.. PANCYTOPENIA WBC anisa 2700, up to 5070 by 02/21/17. Hgb anisa 11.5, up to 12.4 by 02/21/17. Plt anisa 71,000, up to 82,000 by 02/21/17. Pancytopenia probably due to infection. Follow. HYPERTENSION Continue lisinopril. CHRONIC PAIN SYNDROME Continue usual dose of buprenorphine / naloxone. VTE PROPHYLAXIS No anticoagulants due to thrombocytopenia. SCD's. Ambulating. DISPOSITION Discharge to home. Internal Medicine follow-up with Dr. Collier. ID follow-up with Dr. Gupta. . Consultants: ID with Dr. Gupta . Procedures: CT head CT abdomen + pelvis IV fluids . Current Inpatient Medications: Current Inpatient Medications Medications (Trade) Dose Ordered Sig/Elena Route Start Time Stop Time Status Last Admin Dose Admin Ioversol (Optiray 320) 100 ml UD PRN IV 02/19/17 02:30 02/23/17 02:29 Acetaminophen (Tylenol Tab) 325 mg Q6H PRN PO 02/19/17 02:30 03/21/17 02:29 02/19/17 07:37 325 MG Lisinopril (Zestril Tab) 10 mg DAILY PO 02/19/17 08:00 03/21/17 08:59 02/22/17 08:49 10 MG Multivitamins/ Minerals (Multivitamin W/ Minerals Tab) 1 tab DAILY PO 02/19/17 08:00 03/21/17 08:59 02/22/17 08:49 1 TAB Buprenorphine/ Naloxone (Suboxone Tab) 1 ea BID SL 02/19/17 08:00 03/21/17 08:59 02/22/17 09:06 1 EA Pantoprazole Sodium (Protonix Tab) 40 mg QAM PO 02/19/17 08:00 03/21/17 07:59 02/22/17 08:48 40 MG Tramadol HCl (Ultram Tab) 25 mg Q6H PRN PO 02/19/17 02:30 03/21/17 02:29 02/20/17 08:22 25 MG Ketorolac Tromethamine 30 mg 30 mg Q6H PRN IV 02/19/17 02:30 02/24/17 02:29 02/19/17 10:17 30 MG Ceftriaxone Sodium/Dextrose (Rocephin Inj/ Dextrose Add-[place] 50ML) 50 ml @ 100 mls/hr Q24H IV 02/20/17 03:00 02/28/17 03:29 02/22/17 03:10 100 MLS/HR Ondansetron HCl (Zofran Inj) 4 mg Q6H PRN IV 02/19/17 02:45 03/21/17 02:44 Lorazepam 0.5 mg 0.5 mg Q4H PRN IV 02/19/17 02:45 03/21/17 02:44 Lorazepam/Syringe (Ativan Inj/ Syringe) 1 ml @ 1 mls/min Q4H PRN IV 02/19/17 03:15 03/21/17 03:14 02/19/17 06:13 1 MLS/MIN Doxycycline Hyclate (Vibramycin Cap) 100 mg BID PO 02/20/17 20:00 03/02/17 19:59 02/22/17 08:49 100 MG
[2017-02-22] MEDS ORDERED: DOXY-300 PO (13:55)
--- NOTE | 2017-02-22 14:22 | Discharge Instructions ---
Discharge Instructions Date of Service February 22, 2017. Admission Reason for Admission: fever . Discharge Discharge Diagnosis / Problem: fever- probably due to infection from tick bite Discharge Goals Goal(s): Decrease discomfort, Improve disease control Activity Recommendations Activity Limitations: resume your previous activity . Instructions / Follow-Up Instructions / Follow-Up APPOINTMENTS: INTERNAL MEDICINE 03/01/2017 11:20 AM Sarah Lei DO [facility] INFECTIOUS DISEASE 03/16/17 9:00 AM Florida Gupta DO [facility] [address] [place] [address] INSTRUCTIONS: Your fever was probably due to tick bite. Possibilities include Lyme disease, Ehrlichiosis, and Anaplasmosis. Further testing after several weeks may identify the cause of the infection. Drink plenty of fluids. You may take Tylenol as needed for fever or pain. Do not take more than 3000 mg a day. Seek medical attention if you have: * temperature above 101 * chest pain or trouble breathing * abdominal pain, nausea, vomiting * diarrhea, dark stools or bloody stools * any unanswered questions or concerns Call 911 if symptoms are severe. Call if you have any questions or problems. My cell # is [phone]. You can also reach a [facility] hospitalist on duty at [facility] 24 hours a day by calling [phone]. Please take good care of yourself. Seth Preciado . Current Hospital Diet Patient's current hospital diet: [facility] Diet (Heart Healthy) Discharge Diet Recommended Diet: [facility] Diet (Heart Healthy) Pending Studies Studies pending at discharge: yes List of pending studies: blood tests for Ehrlichiosis and Anaplasmosis Medical Emergencies . Who to Call and When: Medical Emergencies: If at any time you feel your situation is an emergency, please call 911 immediately. . Non-Emergent Contact Non-Emergency issues call your: Primary Care Provider . . "Provider Documentation" section prepared by Seth Preciado. . VTE Core Measure Inpt VTE Proph given/why not?: SCD's
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
[2017-02-23 17:34] LABS: ANAPLASMA PHAGOCYTOPHIL IGG <1:64 (<1:64); ANAPLASMA PHAGOCYTOPHIL IGM <1:20 (<1:20); EHRLICHIA CHAFF IGG AB <1:64 (<1:64); EHRLICHIA CHAFF IGM AB <1:20 (<1:20)
== END 2017-02-22 15:25 | disposition home or self-care (01) | DRG 868 ==
LOC: ENRESERVTM → ENRESERVDT → C.EDB 20:52 → C.4E 02-19 02:18
PROVIDERS: ADMIT Hospitalist; ATTEND Hospitalist
DX: A69.20 Lyme disease, unspecified (principal); N39.0 Urinary tract infection, site not specified; M62.82 Rhabdomyolysis; D61.818 Other pancytopenia; G89.4 Chronic pain syndrome; I10 Essential (primary) hypertension; E87.6 Hypokalemia; M25.50 Pain in unspecified joint; M71.9 Bursopathy, unspecified; K21.9 Gastro-esophageal reflux disease without esophagitis; Z86.59 Personal history of other mental and behavioral disorders; Z87.891 Personal history of nicotine dependence; Z79.82 Long term (current) use of aspirin; Z79.891 Long term (current) use of opiate analgesic; Z79.899 Other long term (current) drug therapy

== ENCOUNTER 2018-06-01 18:23 | Observation (INO) | payer OTHER ==
[~2018-06-01] VITALS: Ht 177.8 cm; Wt 94.4 kg
[~2018-06-01 18:23] MED LIST changes: -CIPR-255 PO; +DOXY-300 PO; +MULT-513 PO
[2018-06-01] MEDS ORDERED: ASPIRIN 81 MG CHEW PO STA (18:54)
[2018-06-01] MEDS ORDERED: OPTIRAY 320 IV PRN (19:00)
[2018-06-01 19:23] LABS: HEMATOCRIT 41.2 % (42-52); HEMOGLOBIN 14.4 g/dL (14.0-18.0); MEAN CELL VOLUME 84.4 fL (80-100); MEAN CORPUSCULAR HEMOGLOBIN 29.5 pg (25-34); PLATELET COUNT 233 K/uL (130-400); RED CELL DISTRIBUTION WIDTH CV 12.5 % (11.5-14.5); RED CELL DISTRIBUTION WIDTH SD 38.4 fL (36.4-46.3); WHITE BLOOD COUNT 10.51 K/uL (4.8-10.8)
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
[2018-06-01 19:57] LABS: ALBUMIN 4.5 gm/dl (3.4-5.0); ALKALINE PHOSPHATASE 87 U/L (45-117); ALT/SGPT 37 U/L (12-78); AST/SGOT 27 U/L (15-37); BLOOD UREA NITROGEN 13 mg/dl (7-18); CALCIUM 9.7 mg/dl (8.5-10.1); CARBON DIOXIDE 26 mmol/L (21-32); CREATININE 1.11 mg/dl (0.60-1.40); GLUCOSE 96 mg/dl (70-99); LIPASE 211 U/L (73-393); POTASSIUM 3.8 mmol/L (3.5-5.1); SODIUM 137 mmol/L (136-145); TOTAL PROTEIN 8.9 gm/dl (6.4-8.2)
--- NOTE | 2018-06-01 20:22 | DIAGNOSTIC IMAGING REPORT ---
ABDOMINAL ULTRASOUND, RIGHT UPPER QUADRANT HISTORY: Chest pain. COMPARISON: Right upper quadrant ultrasound May 25, [address] of the abdomen and pelvis February 19, 2017. FINDINGS: No hepatic lesions are identified. Liver morphology is normal. Pancreatic body is normal. Head and tail are obscured. There is no biliary ductal dilatation. Gallbladder is contracted. No gallstones are identified. There is no definite gallbladder wall thickening. Apparent gallbladder wall thickening is likely due to to a contracted gallbladder. There is no right hydronephrosis. There is no ascites. IMPRESSION: No significant abnormality identified within the right upper quadrant. Electronically signed by: Sridhar Machado M.D. 06/01/2018 8:21 PM Dictated Date/Time: 06/01/2018 8:19 PM
--- NOTE | 2018-06-01 20:45 | DIAGNOSTIC IMAGING REPORT ---
CT ANGIOGRAPHY OF THE CHEST, PULMONARY EMBOLUS PROTOCOL CLINICAL HISTORY: Shortness of breath. Chest pain. Nausea. COMPARISON STUDY: Chest CT April 17, 2014 and chest radiograph February 18, 2017. TECHNIQUE: Following IV administration of 94 mL of Optiray-320, helical axial images of the chest were obtained utilizing the pulmonary embolus protocol. Maximal intensity projections and sagittal and coronal reformats were viewed on an independent 3D workstation. IV contrast was administered without complication. A dose lowering technique was utilized adhering to the principles of ALARA. CT DOSE: 409.52 mGy.cm FINDINGS: No pulmonary emboli are identified although exam is moderately compromised by respiratory motion artifact. There is no central or lobar pulmonary embolus. The heart is mildly enlarged. No pericardial effusion is noted. There is no thoracic aortic dissection. No pericardial effusion is noted. No enlarged thoracic lymph nodes are present. Groundglass opacities within the lower lobe favor atelectasis. There is no consolidation to suggest pneumonia. Bony thorax and upper abdomen are unremarkable. IMPRESSION: 1. No pulmonary emboli identified although exam moderately compromised by respiratory motion artifact. 2. Groundglass opacities which favor atelectasis. No consolidation to suggest pneumonia. 3. Mild cardiomegaly. 4. No thoracic aortic dissection. Electronically signed by: Sridhar Machado M.D. 06/01/2018 8:44 PM Dictated Date/Time: 06/01/2018 8:36 PM
[2018-06-01] MEDS ORDERED: PANTOprazole SOD 40 MG TAB PO STA (21:11)
[2018-06-01 21:47] LABS: PTT PATIENT 29.4 SECONDS (21.0-31.0)
[2018-06-01] MEDS ORDERED: TRAMADOL HCL 50 MG TAB PO PRN (22:00)
[2018-06-01] MEDS ORDERED: ACETAMINOPHEN 325 MG TAB PO PRN (22:00)
[2018-06-01] MEDS ORDERED: LORAZEPAM 2 MG/ML 1 ML VIAL IV PRN (22:00)
[2018-06-01] MEDS ORDERED: PROCHLORPERAZINE INJ 5 MG in SYRINGE 4 ML IV PRN (22:00)
--- NOTE | 2018-06-01 22:22 | DIAGNOSTIC IMAGING REPORT ---
CT OF THE ABDOMEN AND PELVIS WITHOUT CONTRAST CLINICAL HISTORY: Abdominal pain. COMPARISON STUDY: CT of the abdomen and pelvis February 19, 2017 and right upper quadrant ultrasound June 01, 2018. TECHNIQUE: Axial images of the abdomen and pelvis were obtained without IV contrast. Images were reviewed in the axial, sagittal, and coronal planes. A dose lowering technique was utilized adhering to the principles of ALARA. FINDINGS: Evaluation of the abdomen and pelvis is suboptimal on this unenhanced exam. The liver, spleen, adrenal glands, kidneys and pancreas are normal. There is no hydronephrosis or hydroureter. Sensitivity for detection of the urinary calculi is diminished given contrast within the collecting systems, ureters and bladder from recent contrast-enhanced CT. No filling defect is identified on this examination. No pneumatosis, free air or portal venous gas is present. The appendix is normal. No suspicious osseous lesion is present. No bowel wall thickening is identified on this unenhanced examination. No biliary or pancreatic ductal dilatation is noted. There is moderate aortoiliac atherosclerotic plaque. IMPRESSION: 1. No acute process within the abdomen or pelvis on unenhanced exam. 2. Normal appendix. No bowel obstruction. Electronically signed by: Sridhar Machado M.D. 06/01/2018 10:20 PM Dictated Date/Time: 06/01/2018 10:15 PM
[2018-06-01 22:45] VITALS: BP 151/95; PULSE 95; TEMP 36.5; O2SAT 96; Ht 177.8 cm; Wt 94.4 kg
--- NOTE | 2018-06-01 22:45 | HISTORY & PHYSICAL EXAMINATION ---
DATE OF ADMISSION: 06/01/2018 PRIMARY CARE PHYSICIAN: Dr. Lei. CHIEF COMPLAINT: Chest pain, shortness of breath. HISTORY OF PRESENT ILLNESS: History obtained from patient, , and records. Medical history significant for chronic pain, on Suboxone; hypertension; past tobacco abuse; ADD as per records, GERD. Recent confinement in February 2017 for rhabdomyolysis, febrile illness, suspected tick-borne illness. Lyme/tick panel testing negative. Patient discharged on doxycycline course. Two-month history of right-sided chest pain, burning, occasional shortness of breath on exertion. No cough symptoms. Last week, right-sided abdominal pain, burning, going to the right chest. May or may not be related to meals. Good bowel movement. MEDICAL HISTORY: As above. Stress echo in April of 2014. SURGERIES: He has had shoulder surgery, tonsillectomy, adenoidectomy. HOME MEDICATIONS: Include aspirin, Suboxone, lisinopril, omeprazole, multivitamins. ALLERGIES: BEE VENOM, BENADRYL, LATEX. FAMILY HISTORY: Lung cancer, throat cancer. PERSONAL AND SOCIAL HISTORY: Past tobacco/alcohol abuse. Disabled REVIEW OF SYSTEMS: as per HPI. All 10 systems reviewed. All other ROS negative. PHYSICAL EXAMINATION VITAL SIGNS: Blood pressure was noted to be 136/90, pulse rate 86, RR 14, temperature 37, sats 96% on room air. GENERAL: Pleasant, slightly anxious, no respiratory distress, obese. SKIN: Normal color, warm. HEENT: Partial alopecia. [place] palpebral conjunctivae. No ptosis noted. Dry mucosa. NECK: Short neck, supple. CHEST: Clear to auscultation. No tenderness. HEART: Regular rate and rhythm, no murmur. ABDOMEN: Tenderness on the RUQ, some distention. EXTREMITIES: No edema noticed. No gross deformities. NEUROLOGIC: Coherent, no gross focality. LABORATORY DATA: Hemoglobin was noted to be 14.4, hematocrit 41.2, white blood cells 9, platelets are 233. Sodium 137, potassium 3.8, chloride 101, BUN 30, creatinine 1.11, glucose 96. Troponin 0.015. Lipase, LFTs were normal. Chest CTA, no PE. Gallbladder ultrasound showed contracted gallbladder. EKG as per my interpretation, rate 85, NSR, someT-wave flattening, inversion in the inferior leads. ASSESSMENT: 1. Right-sided chest pain/abdominal pain probable uncontrolled reflux 2. exertional shortness of breath for weeks rule out pulmonary hypertension, chronic obstructive pulmonary disease hx past tobacco abuse 3. past alcohol abuse 4. chronic pain on Suboxone . PLAN: Observation PCU. CT abdomen and pelvis RE R sided abd pain double PPI dose 2D echo. RE SOB outpatient PFTs. RE exertional SOB Home in AM if patient comfortable and workup unremarkable. DVT prophylaxis, Lovenox subQ. Full code. MTDD
[2018-06-01] MEDS ORDERED: IV FLUIDS COMPLETED PRN (23:00)
[2018-06-01] MEDS ORDERED: NSS + 20MEQ KCL 1000ML 1,000 ML IV ONE (23:30)
[2018-06-02 04:00] VITALS: BP 114/75; PULSE 70; TEMP 36.8; O2SAT 96
[2018-06-02 04:53] VITALS: BP 118/78; PULSE 71; TEMP 36.6; O2SAT 98
[2018-06-02] MEDS ORDERED: ENOXAPARIN 40 MG/0.4 ML SYR SC SCH (06:00)
[2018-06-02 06:07] LABS: BASO % 0.3 %; BASO ABS # 0.03 K/uL (0-0.2); EOS % 2.3 %; EOS ABS # 0.24 K/uL (0-0.5); HEMATOCRIT 38.8 % (42-52); HEMOGLOBIN 13.6 g/dL (14.0-18.0); IG# 0.02 K/uL (0.00-0.02); LYMPH % 42.2 %; LYMPH ABS # 4.36 K/uL (1.2-3.4); MEAN CORPUSCULAR HEMOGLOBIN 29.4 pg (25-34); MEAN CORPUSCULAR HGB CONC 35.1 g/dl (32-36); MEAN PLATELET VOLUME 9.8 fL (7.4-10.4); MONO % 6.7 %; MONO ABS # 0.69 K/uL (0.11-0.59); NEUT % 48.3 %; NEUT ABS # 4.99 K/uL (1.4-6.5); PLATELET COUNT 230 K/uL (130-400); RED CELL DISTRIBUTION WIDTH CV 12.8 % (11.5-14.5); RED CELL DISTRIBUTION WIDTH SD 38.8 fL (36.4-46.3); WHITE BLOOD COUNT 10.33 K/uL (4.8-10.8)
[2018-06-02] MEDS ORDERED: PERFLUTREN LIPID MICROSPHERE (DEFINITY) IV ONE (07:18)
[2018-06-02 07:50] VITALS: BP 130/81; PULSE 80; TEMP 36.6; O2SAT 96
[2018-06-02 08:10] VITALS: O2SAT 96
--- NOTE | 2018-06-02 08:30 | ECHOCARDIOGRAM REPORT ---
*NOTICE TO RECEIVING CONSTITUTION PARTY AGENCY This information is strictly Confidential and protected under [place] law. [place] law prohibits you from making any further disclosure of this information unless further disclosure is expressly permitted by the written consent of the person to whom it pertains or is authorized by law. A general authorization for the release of medical or other information is not sufficient for this purpose. Hospital accepts no responsibility if the information is made available to any other person, INCLUDING THE PATIENT. Interpretation Summary * Name: JENIFFER LOPEZ Study Date: 06/02/2018 06:58 AM BP: 118/78 mmHg * Patient Location: [facility]\S\N289\S\2 HR: 71 * : 1965 (M/d/yyyy) Gender: Male Height: 70 in * Age: 52 yrs Ethnicity: CA Weight: 213 lb * Ordering Physician: Ge Castro * Performed By: Rose Marie Dominguez RDCS * * Reason For Study: SOB * BSA: 2.1 m2 * -- Conclusions -- * Normal LV chamber size with borderline concentric LVH. * Normal LV systolic function, EF 65-70%. * No segmental left ventricular wall motion abnormalities are noted. * Grade I diastolic dysfunction. * No significant valvular pathology. Procedure Details * A complete two-dimensional transthoracic echocardiogram was performed (2D, M-mode, Doppler and color flow Doppler). * A contrast injection of Definity was performed to improve assessment of LV function. * Contrast was injected into an intravenous site in the right arm. * One vial of Definity ultrasound contrast was diluted in normal saline to a total volume of 10 ml. A total of '3' ml of solution was administered during imaging. * Lot # [id number] of Definity utilized for procedure. * Expiration date 05/05. * The attending nurse who injected the contrast agent was PRASANTH DUBOIS RN. Left Ventricle * The left ventricle is normal in size. * There is borderline concentric left ventricular hypertrophy. * Ejection Fraction = 65-70%. * Left ventricular systolic function is normal. * No segmental left ventricular wall motion abnormalities are noted. * The left ventricular wall motion is normal. Right Ventricle * The right ventricular cavity size is normal (basal dimension <4.2 cm in right ventricular apical 4-chamber view). * The right ventricular systolic function is normal as assessed by tricuspid annular plane systolic excursion (TAPSE) (normal >1.5 cm). Atria * The left atrial size is normal. * Right atrial size is normal. * No ASD detected; PFO is not assessed. Mitral Valve * The mitral valve is normal in structure and function. Tricuspid Valve * The tricuspid valve is normal in structure and function. Aortic Valve * The aortic valve is normal in structure and function. Pulmonic Valve * The pulmonary valve is not well seen, but the Doppler examination is normal without significant regurgitation or stenosis. Great Vessels * The aortic root is normal size. Pericardium/Pleural * There is no pericardial effusion. Left Ventricular Diastolic Function * Grade I diastolic dysfunction, (abnormal relaxation pattern). MMode 2D Measurements and Calculations IVSd 10 cm IVSs 1.3 cm LVIDd 4.4 cm LVIDs 2.8 cm LVPWd 1.0 cm LVPWs 1.7 cm IVS/LVPW 0.95 FS 37.9 % EDV(Teich) 89.5 ml ESV(Teich) 28.4 ml EF(Teich) 68.3 % EDV(cubed) 87.4 ml ESV(cubed) 20.9 ml EF(cubed) 76.1 % % IVS thick 35.2 % % LVPW thick 63.1 % LV mass(C)d 154.8 grams LV mass(C)dI 72.2 grams/m\S\2 LV mass(C)s 146.8 grams LV mass(C)sI 68.5 grams/m\S\2 SV(Teich) 61.1 ml SI(Teich) 28.5 ml/m\S\2 SV(cubed) 66.5 ml SI(cubed) 31.0 ml/m\S\2 ACS 1.4 cm asc Aorta Diam 3.0 cm LVOT diam 1.9 cm LVOT area 3.0 cm\S\2 LVAd ap4 31.0 cm\S\2 LVLd ap4 7.9 cm EDV(MOD-sp4) 97.1 ml EDV(sp4-el) 103.2 ml LVAs ap4 15.8 cm\S\2 LVLs ap4 6.0 cm ESV(MOD-sp4) 34.1 ml ESV(sp4-el) 35.1 ml EF(MOD-sp4) 64.8 % EF(sp4-el) 66.0 % LVAd ap2 32.8 cm\S\2 LVLd ap2 8.3 cm EDV(MOD-sp2) 107.1 ml EDV(sp2-el) 109.8 ml LVAs ap2 16.9 cm\S\2 LVLs ap2 6.4 cm ESV(MOD-sp2) 34.6 ml ESV(sp2-el) 37.5 ml EF(MOD-sp2) 67.7 % EF(sp2-el) 65.9 % LVLd %diff 4.9 % EDV(MOD-bp) 101.3 ml LVLs %diff 6.5 % ESV(MOD-bp) 35.6 ml EF(MOD-bp) 64.8 % SV(MOD-sp4) 62.9 ml SI(MOD-sp4) 29.4 ml/m\S\2 SV(MOD-sp2) 72.4 ml SI(MOD-sp2) 33.8 ml/m\S\2 SV(MOD-bp) 65.7 ml SI(MOD-bp) 30.6 ml/m\S\2 SV(sp4-el) 68.1 ml SI(sp4-el) 31.8 ml/m\S\2 SV(sp2-el) 72.3 ml SI(sp2-el) 33.7 ml/m\S\2 Doppler Measurements and Calculations MV E max gutierrez 63.5 cm/sec MV A max gutierrez 61.4 cm/sec MV E/A 1.0 MV dec time 0.28 sec Ao V2 max 107.8 cm/sec Ao max PG 4.7 mmHg Ao max PG (full) 1.5 mmHg BROOKS(V,A) 2.4 cm\S\2 BROOKS(V,D) 2.4 cm\S\2 LV V1 max PG 3.1 mmHg LV V1 max 88.7 cm/sec PA V2 max 67.9 cm/sec PA max PG 1.8 mmHg
[2018-06-02] MEDS ORDERED: BUPRENORPHINE/NALOXONE 8/2 MG TAB SL SCH (09:00)
[2018-06-02] MEDS ORDERED: ASPIRIN 81 MG ECTAB PO SCH (09:00)
[2018-06-02] MEDS ORDERED: CEROVITE ADV FORMULA TAB PO SCH (09:00)
[2018-06-02] MEDS ORDERED: LISINOPRIL 10 MG TAB PO SCH (09:00)
[2018-06-02] MEDS ORDERED: PANTOprazole SOD 40 MG TAB PO SCH (09:00)
[2018-06-02 11:14] VITALS: BP 114/75; PULSE 76; TEMP 36.6; O2SAT 94
--- NOTE | 2018-06-02 15:49 | Progress Note ---
Medicine Progress Note Date & Time of Visit: Jun 02, 2018 at 15:49 . Subjective Doing well. No chest pain, cough, SOB, nausea, vomiting. . Objective Last 8 Hrs Date Time Temp Pulse Resp B/P (MAP) Pulse Ox O2 Delivery O2 Flow Rate FiO2 06/02/18 11:14 36.6 76 18 114/75 (88) 94 Room Air 06/02/18 08:10 96 Room Air 06/02/18 07:50 36.6 80 18 130/81 (97) 96 Room Air Physical Exam: General- no distress Lungs- clear to auscultation; no respiratory distress Cardiovascular- RRR; no gallop; no JVD; no pretibial edema Abdomen- + bowel sounds, soft, nontender Extremities- no cyanosis; no calf tenderness Neuro- alert, oriented Skin- warm & dry . Laboratory Results: Last 24 Hours Test 06/01/18 19:08 06/01/18 21:31 06/02/18 00:00 06/02/18 05:56 White Blood Count 10.51 K/uL 10.33 K/uL Red Blood Count 4.88 M/uL 4.62 M/uL Hemoglobin 14.4 g/dL 13.6 g/dL Hematocrit 41.2 % 38.8 % Mean Corpuscular Volume 84.4 fL 84.0 fL Mean Corpuscular Hemoglobin 29.5 pg 29.4 pg Mean Corpuscular Hemoglobin Concent 35.0 g/dl 35.1 g/dl RDW Standard Deviation 38.4 fL 38.8 fL RDW Coefficient of Variation 12.5 % 12.8 % Platelet Count 233 K/uL 230 K/uL Mean Platelet Volume 10.0 fL 9.8 fL Sodium Level 137 mmol/L Potassium Level 3.8 mmol/L Chloride Level 101 mmol/L Carbon Dioxide Level 26 mmol/L Anion Gap 10.0 mmol/L Blood Urea Nitrogen 13 mg/dl Creatinine 1.11 mg/dl Est Creatinine Clear Calc Drug Dose 93.0 ml/min Estimated GFR () 89.3 Estimated GFR (Non- 77.0 BUN/Creatinine Ratio 11.9 Random Glucose 96 mg/dl Calcium Level 9.7 mg/dl Magnesium Level 1.9 mg/dl Total Bilirubin 1.0 mg/dl Aspartate Amino Transf (AST/SGOT) 27 U/L Alanine Aminotransferase (ALT/SGPT) 37 U/L Alkaline Phosphatase 87 U/L Troponin I < 0.015 ng/ml < 0.015 ng/ml Total Protein 8.9 gm/dl Albumin 4.5 gm/dl Globulin 4.4 gm/dl Albumin/Globulin Ratio 1.0 Lipase 211 U/L Thyroid Stimulating Hormone (TSH) 1.130 uIu/ml Activated Partial Thromboplast Time 29.4 SECONDS Partial Thromboplastin Ratio 1.1 Urine Color YELLOW Urine Appearance CLEAR Urine pH 6.5 Urine Specific [place] 1.009 Urine Protein NEG Urine Glucose (UA) NEG Urine Ketones NEG Urine Occult Blood NEG Urine Nitrite NEG Urine Bilirubin NEG Urine Urobilinogen NEG Urine Leukocyte Esterase NEG Neutrophils (%) (Auto) 48.3 % Lymphocytes (%) (Auto) 42.2 % Monocytes (%) (Auto) 6.7 % Eosinophils (%) (Auto) 2.3 % Basophils (%) (Auto) 0.3 % Neutrophils # (Auto) 4.99 K/uL Lymphocytes # (Auto) 4.36 K/uL Monocytes # (Auto) 0.69 K/uL Eosinophils # (Auto) 0.24 K/uL Basophils # (Auto) 0.03 K/uL Immature Granulocyte % (Auto) 0.2 % Immature Granulocyte # (Auto) 0.02 K/uL Assessment & Plan RIGHT-SIDED ABDOMINAL / EPIGASTRIC / CHEST PAIN Presented with intermittent RUQ / epigastric / right chest pain, nonexertional, sometimes related to meals. Serum troponins negative. EKG showed NSR, no acute changes. Echo did not show any wall motion abnormalities or evidence of pericarditis. CTA chest negative for pulmonary embolism, aortic dissection, or other acute processes. US gallbladder and CT of abdomen and pelvis did not show any evidence of biliary tract pathology or other intra-abdominal processes. Patient indicated that he was concerned that he might have cancer because it runs in his family. He was re-assured that there was no evidence of malignancy on current imaging. History of GERD; current symptoms may be related. Try increasing omeprazole to 40 mg BID x 30 days and using antacids PRN for symptoms. May need further evaluation if symptoms persist or worsen. HYPERTENSION BP's generally well-controlled. Continue lisinopril. HYPERPROTEINEMIA Total protein 8.9, albumin 4.5, globulin 4.4 (normal 2.5-4.4). Recheck in clinic. If serum globulin remains elevated, consider evaluation for gammopathy or chronic infection (e.g., HIV). VTE PROPHYLAXIS SQ enoxaparin. Ambulating. DISPOSITION Expected discharge to home. Internal Medicine follow-up with Dr. Lei. . Current Inpatient Medications: Current Inpatient Medications Medications (Trade) Dose Ordered Sig/Elena Route Start Time Stop Time Status Last Admin Dose Admin Ioversol (Optiray 320) 100 ml UD PRN IV 06/01/18 19:00 06/05/18 18:59 Pantoprazole Sodium (Protonix Tab) 40 mg BID PO 06/02/18 09:00 07/02/18 08:59 06/02/18 08:11 40 MG Enoxaparin Sodium (Lovenox Inj) 40 mg Q24H SC 06/02/18 06:00 07/02/18 05:59 06/02/18 06:38 40 MG Potassium Chloride/Sodium Chloride 1,000 ml @ 60 mls/hr [id number] ONCE IV 06/01/18 23:30 06/02/18 16:09 06/02/18 00:45 60 MLS/HR Acetaminophen (Tylenol Tab) 650 mg Q4H PRN PO 06/01/18 22:00 07/01/18 21:59 Tramadol HCl (Ultram Tab) 25 mg Q6H PRN PO 06/01/18 22:00 07/01/18 21:59 Prochlorperazine Edisylate 5 mg/ Syringe 5 ml @ 5 mls/min Q6H PRN IV 06/01/18 22:00 07/01/18 21:59 Lorazepam (Ativan Inj) 0.5 mg Q4H PRN IV 06/01/18 22:00 07/01/18 21:59 Aspirin (Ecotrin Tab) 81 mg DAILY PO 06/02/18 09:00 07/02/18 08:59 06/02/18 08:11 81 MG Buprenorphine/ Naloxone (Suboxone 8/2MG Tab) 1 tab BID SL 06/02/18 09:00 07/02/18 08:59 06/02/18 08:11 1 TAB Lisinopril (Zestril Tab) 10 mg DAILY PO 06/02/18 09:00 07/02/18 08:59 8/16/18 08:11 10 MG Multivitamins/ Minerals (Multivitamin W/ Minerals Tab) 1 tab DAILY PO 06/02/18 09:00 07/02/18 08:59 06/02/18 08:11 1 TAB Miscellaneous (Iv Fluids Completed) 1 ea PRN PRN N/A 06/01/18 23:00 06/01/19 22:59
[2018-06-02] MEDS ORDERED: OMEP40CA41 PO (15:52)
--- NOTE | 2018-06-02 15:59 | Discharge Instructions ---
Discharge Instructions Date of Service Jun 02, 2018. Admission Reason for Admission: chest pain . Discharge Discharge Diagnosis / Problem: chest pain- no sign of a heart attack or other serious problems Discharge Goals Goal(s): Decrease discomfort, Improve disease control Activity Recommendations Activity Limitations: resume your previous activity . Instructions / Follow-Up Instructions / Follow-Up APPOINTMENTS: INTERNAL MEDICINE 06/14/2018 11:00 AM Sarah Lei, DO OTHER INSTRUCTIONS: You had CT scans of your chest and abdomen, ultrasound of your gallbladder, and ultrasound of your heart. There were no signs of a heart attack, cancer, or other serious problems. You might be having acid reflux on and off. Try increasing omeprazole (Prilosec) to 40 mg twice a day for 1 month, then go back to previous dose of 20 mg daily. Try Maalox Plus or Mylanta Plus as needed to see if they help. Avoid aspirin and anti-inflammatory medicines like ibuprofen (Advil or Motrin), naproxen (Aleve), and others. Avoid excessive use of alcoholic beverages. Let Dr. Lei know if you continue to have problems. Seek medical attention if you have: * temperature above 101 * chest pain or trouble breathing * abdominal pain, nausea, vomiting * diarrhea, dark stools or bloody stools * any unanswered questions or concerns Call 911 if symptoms are severe. Call if you have any questions or problems. My cell # is [phone]. You can also reach a [facility] hospitalist on duty at [facility] 24 hours a day by calling [phone]. Please take good care of yourself. Seth Preciado . Current Hospital Diet Patient's current hospital diet: AHA Diet (Heart Healthy) Discharge Diet Recommended Diet: AHA Diet (Heart Healthy) Procedures Procedures Performed: CT chest CT abdomen ultrasound gallbladder echocardiogram Pending Studies Studies pending at discharge: no Medical Emergencies . Who to Call and When: Medical Emergencies: If at any time you feel your situation is an emergency, please call 911 immediately. . Non-Emergent Contact Non-Emergency issues call your: Primary Care Provider, Hospital Doctor . . "Provider Documentation" section prepared by Seth Preciado. . [place] Drug Monitoring Program Search Results: patient reviewed within database, no issues identified
[2018-06-02 16:18] VITALS: BP 114/75; PULSE 76; TEMP 36.6; O2SAT 94
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
== END 2018-06-02 18:42 | disposition home or self-care (01) ==
LOC: C.EDB 18:24 → C.MED 21:48 → ENRESERV 22:29
PROVIDERS: ADMIT Hospitalist; ATTEND Hospitalist
DX: R07.9 Chest pain, unspecified (principal); R06.02 Shortness of breath; R10.13 Epigastric pain; E88.09 Other disorders of plasma-protein metabolism, not elsewhere classified; G89.4 Chronic pain syndrome; I10 Essential (primary) hypertension; F90.9 Attention-deficit hyperactivity disorder, unspecified type; K21.9 Gastro-esophageal reflux disease without esophagitis; Z79.82 Long term (current) use of aspirin; Z87.891 Personal history of nicotine dependence; Z91.040 Latex allergy status; Z91.030 Bee allergy status